=== PATIENT | female | born 1960 | race Caucasian/White ===

== ENCOUNTER 2018-10-13 08:28 | Day surgery (SDC) | payer OTHER ==
[~2018-10-13] VITALS: Ht 157.5 cm; Wt 68.0 kg
[2018-10-13] MEDS ORDERED: KETOROLAC 30 MG/ML VIAL ONE (09:38)
[2018-10-13] MEDS ORDERED: LIDOCAINE 2% 100 MG/5 ML UJET TP ONE (09:38)
== END 2018-10-13 10:40 | disposition home or self-care (01) ==
LOC: MDS 08:28 → MMU 08:31 → MDS 10:40
PROVIDERS: ATTEND Internal Medicine Gastroenterology
DX: D12.3 Benign neoplasm of transverse colon (principal); D12.5 Benign neoplasm of sigmoid colon; K57.30 Diverticulosis of large intestine without perforation or abscess without bleeding; F17.210 Nicotine dependence, cigarettes, uncomplicated; Z72.89 Other problems related to lifestyle; Z90.710 Acquired absence of both cervix and uterus
CPT/HCPCS: 45385; J1885